=== PATIENT | male | born 1980 | race African-American/Black ===

== ENCOUNTER 2017-10-26 17:30 | Emergency (ER) | payer SELFPAY ==
[~2017-10-26] VITALS: Ht 182.9 cm; Wt 88.0 kg
[2017-10-26] MEDS ORDERED: ONDANSETRON HCL 4MG/2ML VIAL IV STA (18:15)
[2017-10-26] MEDS ORDERED: SODIUM CHLORIDE 0.9% 1,000 ML IV ONE (18:15)
[2017-10-26] MEDS ORDERED: MORPHINE SULFATE 4 MG/ML CPJ (NOT FOR IM USE) IV STA (18:15)
[2017-10-26] MEDS ORDERED: ETOMIDATE 2MG/ML 10ML VIAL IV ONE (18:30)
[2017-10-26 19:12] VITALS: BP 153/95
== END 2017-10-26 20:35 | disposition home or self-care (01) ==
LOC: ER 18:10
DX: S82.391A Other fracture of lower end of right tibia, initial encounter for closed fracture (principal); S82.831A Other fracture of upper and lower end of right fibula, initial encounter for closed fracture; I10 Essential (primary) hypertension; W17.89XA Other fall from one level to another, initial encounter; Y93.39 Activity, other involving climbing, rappelling and jumping off; Y92.018 Other place in single-family (private) house as the place of occurrence of the external cause
CPT/HCPCS: 27840; 73610; 96361; 96374; 96375; 99152; 99285; J2270; J2405; J3490; J7030; Z7610